=== PATIENT | female | born 1995 | race American Indian/Alaskan Native ===

== ENCOUNTER 2021-10-17 08:37 | Emergency (ER) | payer SELFPAY ==
--- NOTE | 2021-10-17 10:40 | XRay Report ---
RIGHT ANKLE 3 VIEWS INDICATION / CLINICAL INFORMATION: Fall with right ankle pain. COMPARISON: None available. FINDINGS: BONES / JOINT(S): No acute fracture or subluxation. No significant arthritis. A benign sclerotic lesi on involving the distal tibial shaft laterally is characteristic of a healed nonossifying fibroma. SOFT TISSUES: There is mild soft tissue swelling overlying the lateral malleolus. ADDITIONAL FINDINGS: None. IMPRESSION: Mild soft tissue swelling overlying the lateral malleolus without acute osseous abnormali ty. Signer Name: Art Schaffer MD Signed: 10/17/2021 10:35 AM Workstation Name: [id number]
--- NOTE | 2021-10-17 15:10 | Emergency Department Report ---
ED Lower Extremity HPI - General Chief Complaint: Extremity Injury, Lower Stated Complaint: RIGHT SPRAIN ANKLE Source: patient Mode of arrival: Wheelchair Limitations: No Limitations - History of Present Illness Initial Comments: 26-year-old female presents to the ED complaining of right ankle swelling and pain. She states that she was participating in a potato sack race when she slipped and fell x2 days ago. Patient has moderate swelling noted to the right ankle. Patient able to bear weight with pain. States pain is a current 5 out of 10. Patient has no obvious distracting injury noted. Patient denies any fever or chills. She states that she was wearing a bandage prior without any relief. Patient is alert and oriented x3. No acute distress noted. No ill appearance noted. MD Complaint: fall Onset/Timin -: days(s) Injury: Ankle: Right Type of Injury: other Place: home Severity: moderate Severity scale (0 -10): 6 Improves With: nothing Worsens With: movement Context: fall Associated Symptoms: swelling, able to partially bear weight. denies: numbness, tingling Treatments Prior to Arrival: bandage - Related Data Previous Rx's Medication Instructions Recorded Last Taken Type Acetaminophen/Codeine [Tylenol 1 tab PO Q6H PRN 3 Days #12 tab 10/17/21 Unknown Rx /Codeine # 3 tab] Allergies Allergy/AdvReac Type Severity Reaction Status Date / Time No Known Allergies Allergy Unverified 10/17/21 10:05 ED Review of Systems ROS: Stated complaint: RIGHT SPRAIN ANKLE Other details as noted in HPI Constitutional: denies: chills, fever Eyes: denies: eye pain, eye discharge, vision change ENT: denies: ear pain, throat pain Respiratory: denies: cough, shortness of breath, wheezing Cardiovascular: denies: chest pain, palpitations Endocrine: no symptoms reported Gastrointestinal: denies: abdominal pain, nausea, diarrhea Genitourinary: denies: urgency, dysuria, discharge Musculoskeletal: joint swelling. denies: back pain, arthralgia Skin: denies: rash, lesions Neurological: denies: headache, weakness, paresthesias Psychiatric: denies: anxiety, depression Hematological/Lymphatic: denies: easy bleeding, easy bruising ED Past Medical Hx - Past Medical History Previous Medical History?: No - Surgical History Past Surgical History?: No - Medications Home Medications: Home Medications Medication Instructions Recorded Confirmed Last Taken Type Acetaminophen/Codeine [Tylenol 1 tab PO Q6H PRN 3 Days #12 tab 10/17/21 Unknown Rx /Codeine # 3 tab] ED Physical Exam - General Limitations: No Limitations General appearance: alert, in no apparent distress - Head Head exam: Present: atraumatic, normocephalic - Eye Eye exam: Present: normal appearance - ENT ENT exam: Present: mucous membranes moist - Neck Neck exam: Present: normal inspection - Respiratory Respiratory exam: Present: normal lung sounds bilaterally. Absent: respiratory distress - Cardiovascular Cardiovascular Exam: Present: regular rate, normal rhythm. Absent: systolic murmur, diastolic murmur, rubs, gallop - GI/Abdominal GI/Abdominal exam: Present: soft, normal bowel sounds - Extremities Exam Extremities exam: Present: normal inspection - Expanded Lower Extremity Exam Right Lower Leg exam: Present: tenderness, swelling - Back Exam Back exam: Present: normal inspection - Neurological Exam Neurological exam: Present: alert, oriented X3 - Psychiatric Psychiatric exam: Present: normal affect, normal mood - Skin Skin exam: Present: warm, dry, intact, normal color. Absent: rash ED Course Vital Signs 10/17/21 10:05 Temperature 98 F Pulse Rate 76 Respiratory 20 Rate Blood Pressure 118/75 [Right] O2 Sat by Pulse 99 Oximetry ED Lower Extremity MDM - Radiology Data [facility] [address] [place] [address] XRay Report Signed Patient: EMILEE KING MR#: [id number] : 1995 Acct:[id number] Age/Sex: 26 / F ADM Date: 10/17/21 Loc: ED Attending Dr: Ordering Physician: SHANNAN FLORES MD Date of Service: 10/17/21 Procedure(s): XR ankle 3+V RT Accession Number(s): [id number] cc: SHANNAN FLORES MD Fluoro Time In Minutes: RIGHT ANKLE 3 VIEWS INDICATION / CLINICAL INFORMATION: Fall with right ankle pain. COMPARISON: None available. FINDINGS: BONES / JOINT(S): No acute fracture or subluxation. No significant arthritis. A benign sclerotic lesion involving the distal tibial shaft laterally is characteristic of a healed nonossifying fibroma. SOFT TISSUES: There is mild soft tissue swelling overlying the lateral malleolus. ADDITIONAL FINDINGS: None. IMPRESSION: Mild soft tissue swelling overlying the lateral malleolus without acute osseous abnormality. Signer Name: Catherine Schaffer MD - Medical Decision Making 26-year-old female presents to the ED complaining of right ankle swelling and pain. She states that she was participating in a potato sack race when she slipped and fell x2 days ago. Patient has moderate swelling noted to the right ankle. Patient able to bear weight with pain. States pain is a current 5 out of 10. Patient has no obvious distracting injury noted. Patient denies any fever or chills. She states that she was wearing a bandage prior without any relief. Patient is alert and oriented x3. No acute distress noted. No ill appearance noted. Denies any numbness or tingling. Physical examination she has moderate edema noted to the right ankle. No ecchymosis noted. she is able to bear weight with pain. Patient will apply Phain bandage and follow-up with orthopedic. Rechecked the patient is resting quietly quietly and comfortable and feeling better. I discussed the results of diagnostic study, my clinical impression and the plan for further treatment with the patient. Patient agrees with plan and discharge at this present time. All question addressed. I have given the patient instruction regarding a diagnosis ,expectation ,follow- up and return precaution. I explained to the patient that emergent condition may arise and to return to the ED for new worsen and any new persisting condition. I have explained the importance of following up with the primary care physician or referral physician listed below has instructed. The patient verbalized understanding of discharge instruction. Critical care attestation.: If time is entered above; I have spent that time in minutes in the direct care of this critically ill patient, excluding procedure time. ED Disposition Clinical Impression: Right ankle sprain Qualifiers: Encounter type: initial encounter Involved ligament of ankle: unspecified ligament Qualified Code(s): S93.401A - Sprain of unspecified ligament of right ankle, initial encounter Disposition: HOME / SELF CARE / HOMELESS Is pt being admited?: No Does the pt Need Aspirin: No Condition: Stable Instructions: How to Use Cold Therapy, [id number], Ankle Sprain, [id number] Additional Instructions: may take over the counter for pain Return to Ed for any worsen symptoms Prescriptions: Acetaminophen/Codeine [Tylenol /Codeine # 3 tab] 1 tab PO Q6H PRN 3 Days #12 tab PRN Reason: Pain , Severe (7-10) Referrals: CATHERINE VICTORIA MD [Staff Physician] - 3-5 Days Forms: Work/School Release Form(ED) Time of Disposition: 15:38
[2021-10-17 16:52] VITALS: BP 116/72
== END 2021-10-17 16:51 | disposition home or self-care (01) ==
LOC: ED 08:37
DX: S93.401A Sprain of unspecified ligament of right ankle, initial encounter (principal); W19.XXXA Unspecified fall, initial encounter; Y93.89 Activity, other specified; Y92.89 Other specified places as the place of occurrence of the external cause; Y99.8 Other external cause status
CPT/HCPCS: 99283